=== PATIENT | male | born 1980 | race Caucasian/White ===

== ENCOUNTER 2017-02-23 12:18 | Emergency (ER) | payer OTHER ==
[2017-02-23] MEDS ORDERED: MORPHINE SULFATE 5 MG/ML PFS IVP ONE (12:29)
[2017-02-23] MEDS ORDERED: ONDANSETRON HCL IV 4 MG/2 ML VIAL IVP ONE (12:30)
[2017-02-23] MEDS ORDERED: 0.9 % SODIUM CHLORIDE 1000ML 1,000 ML IV SCH (12:30)
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
[2017-02-23 13:39] LABS: HEMATOCRIT 48.8 % (42.0-52.0); HEMOGLOBIN 17.3 gm/dl (14.0-18.0); MEAN CORPUSCULAR HEMOGLOBIN 30.8 pg (27-33); MEAN CORPUSCULAR HGB CONC 35.5 g/dl (32-36); MEAN PLATELET VOLUME 10.4 fl (7.4-10.4); PLATELET COUNT 268 K/uL (130-400); RED BLOOD COUNT 5.61 M/uL (4.40-5.70); RED CELL DISTRIBUTION WIDTH 13.1 % (11.5-14.5)
[2017-02-23 13:51] LABS: ALB/GLOB RATIO 1.7 (1.1-1.8); ALBUMIN 4.7 gm/dL (3.5-5.0); ALKALINE PHOSPHATASE 75 U/L (38-126); ALT/SGPT 42 U/L (21-72); ANION GAP 8.6 (7-16); AST/SGOT 36 U/L (17-59); BILIRUBIN,TOTAL 0.73 mg/dL (0.2-1.3); BLOOD UREA NITROGEN 23 mg/dL (9-20); CARBON DIOXIDE 29.4 mmol/L (22-30); CREATININE 0.9 mg/dL (0.66-1.25); EST GLOMERULAR FILTRATION RATE > 60 ml/min; GLUCOSE,RANDOM 230 mg/dL (70-110); TOTAL PROTEIN 7.4 gm/dL (6.3-8.2)
[2017-02-23 13:57] LABS: WHITE BLOOD COUNT W/O DIFF 26.8 K/uL (4.2-12.2)
[2017-02-23] MEDS ORDERED: FENTANYL PF 100MCG/2ML VIAL IVP ONE ×2 (14:19→15:16)
[2017-02-23 14:56] LABS: ABO GROUP O; ANTIBODY SCREEN NEGATIVE (NEGATIVE); RH TYPE POSITIVE
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
== END 2017-02-23 15:55 | disposition short-term general hospital (02) ==
LOC: ER 12:18
DX: S42.291A Other displaced fracture of upper end of right humerus, initial encounter for closed fracture (principal); S30.1XXA Contusion of abdominal wall, initial encounter; S40.812A Abrasion of left upper arm, initial encounter; S40.811A Abrasion of right upper arm, initial encounter; S20.419A Abrasion of unspecified back wall of thorax, initial encounter; S80.812A Abrasion, left lower leg, initial encounter; S20.319A Abrasion of unspecified front wall of thorax, initial encounter; V20.0XXA Motorcycle driver injured in collision with pedestrian or animal in nontraffic accident, initial encounter; Y92.410 Unspecified street and highway as the place of occurrence of the external cause
CPT/HCPCS: 99285 ×2; 96376; 96374; 96375; 83605; 80053; 85027; 86900; 86901; 86850; 73030; 72125; 71260; 70450; 74177; Q9967; J2405; J3010; J2270; J7030